=== PATIENT | female | born 1965 | race Caucasian/White ===

== ENCOUNTER → 2017-08-18 | Outpatient (CLI) | payer OTHER | LOC: BRMIMAGING 09:10 | PROVIDERS: ATTEND Specialist | DX: M79.672 Pain in left foot (principal); M25.572 Pain in left ankle and joints of left foot | CPT/HCPCS: 73610-PO; 73630-PO ==

== ENCOUNTER → 2017-08-27 | Outpatient (CLI) | payer OTHER | LOC: BRMIMAGING 10:14 | PROVIDERS: ATTEND Internal Medicine | DX: M89.372 Hypertrophy of bone, left ankle and foot (principal); M85.672 Other cyst of bone, left ankle and foot | CPT/HCPCS: 73630-PO ==

== ENCOUNTER → 2017-09-18 | Outpatient (CLI) | payer OTHER | LOC: BRMIMAGING 09:05 | PROVIDERS: ATTEND Internal Medicine | DX: M25.551 Pain in right hip (principal); M25.552 Pain in left hip; M25.562 Pain in left knee; M54.5 Low back pain | CPT/HCPCS: 72114-PO; 73521-PO; 73562-PO ==